=== PATIENT | female | born 1940 | race Caucasian/White ===

== ENCOUNTER 2018-04-15 10:08 | Emergency (ER) | payer MEDICARE ==
[~2018-04-15] VITALS: Ht 162.6 cm; Wt 68.0 kg
[~2018-04-15 10:08] MED LIST: ALBU90OI61; ALPR.5 PO; AMLO5; ASCO1ER; ASCO500 PO; ASPI325EC PO; ASPI81CH PO; AZIT250 PO; Aspirin EC325 MG PO; Ativan0.5 MG; Ativan0.5 MG PO; CALCA500CH PO; CAND16; CARV25 PO; CARV3.125 PO; CARV6.25 PO; CIPR250 PO; CODACE30 PO; ERGO50000 PO; ESTMETHS PO; ESTR.05TPB; ESTR.05TPW; ESTR1; ESTR2 PO; FLAX; FLUT.05NI; FURO20 PO; HCTZ; HYDACE5; HYDCHL12.5; HYDCHLSU; HYDCHLSU PO; HYDGUAL120 PO; IBUP600 PO; Keflex500 MG PO; LANS15EC PO; LANS30EC PO; LEVFLO500 PO; LEVLIO1; LEVLIO2; LEVSOD100; LEVSOD75 PO; LORA.5; LORA.5 PO; LORA10; LORA10ER PO; LORA2 PO; LOSARTAN POTAS100 MG PO; METO25 PO; MULVITMIND; Mucinex600 MG PO; NEBI5 PO; OLME20 PO; OMEP10ER; Omeprazole20 M1 PO; PANT40; PHENA200 PO; POTA8; POTA8 PO; PROP10; RANI150 PO; SUCR1 PO; SULTRIDS PO; TEGA6; THYR60; THYR60 PO; TRIHYD253A; TRIHYD253A PO; TRIHYD253B PO; Ultram50 MG PO; VERA120ER
[2018-04-15 11:03] LABS: BASOPHILS ABSOLUTE AUTO 0.05 K/mm3 (0.00-0.23); BASOPHILS PERCENT AUTO 1 % (0-2); EOSINOPHILS ABSOLUTE AUTO 0.14 K/mm3 (0.00-0.68); EOSINOPHILS PERCENT AUTO 2 % (0-6); Hematocrit 43.7 % (33.0-51.0); Hemoglobin 14.3 g/dL (11.5-16.0); IMMATURE GRAN ABSOLUTE AUTO 0.02 K/mm3 (0.00-0.10); IMMATURE GRAN PERCENT AUTO 0 % (0-1); LYMPHOCYTES ABSOLUTE AUTO 2.97 K/mm3 (0.84-5.20); LYMPHOCYTES PERCENT AUTO 39 % (21-46); MONOCYTES ABSOLUTE AUTO 0.58 K/mm3 (0.16-1.47); MONOCYTES PERCENT AUTO 8 % (4-13); Mean Corpuscular HGB 28.9 pg (26.0-34.0); Mean Corpuscular HGB Conc 32.7 g/dL (31.5-36.5); Mean Corpuscular Volume 89 fL (80-100); Mean Platelet Volume 9.4 fL (9.1-12.4); NEUTROPHILS PERCENT AUTO 51 % (41-73); Platelet Count 342 K/mm3 (150-400); RDW Coefficient Variation 13.2 % (11.7-14.2); RDW Standard Deviation 42.4 fL (35.1-46.3); Red Blood Cell Count 4.94 M/mm3 (3.80-5.20); White Blood Cell Count 7.66 K/mm3 (4.00-11.30)
[2018-04-15 11:23] LABS: Alanine Aminotransfer (ALT/SGP 40 U/L (12-78); Albumin, Blood 4.1 g/dL (3.4-5.0); Albumin/Globulin Ratio 1.1 (0.8-1.8); Alk Phos 86 U/L (50-136); Anion Gap 9 mmol/L (6-16); Aspartate Aminotrans (AST/SGOT 20 U/L (12-37); Bilirubin, Total 0.4 mg/dL (0.1-1.0); Blood Urea Nitrogen 12 mg/dL (8-24); CO2, Blood 25 mmol/L (21-32); Calcium, Blood 9.3 mg/dL (8.5-10.1); Chloride, Blood 100 mmol/L (98-108); Creatinine, Blood 0.63 mg/dL (0.40-1.00); Globulin, Blood 3.8 g/dL (2.2-4.0); Glomerular Filtration Rate >60 (60-); Glucose, Blood 142 mg/dL (70-99); Potassium, Blood 3.6 mmol/L (3.5-5.5); Sodium, Blood 134 mmol/L (136-145); Total Protein, Blood 7.9 g/dL (6.4-8.2)
== END 2018-04-15 13:02 | disposition home or self-care (01) ==
LOC: ER 10:08
PROVIDERS: Emergency Medicine
DX: R10.9 Unspecified abdominal pain (principal); E11.9 Type 2 diabetes mellitus without complications; I10 Essential (primary) hypertension; Z88.1 Allergy status to other antibiotic agents; Z88.0 Allergy status to penicillin; Z88.2 Allergy status to sulfonamides; Z88.8 Allergy status to other drugs, medicaments and biological substances; Z88.5 Allergy status to narcotic agent; Z79.899 Other long term (current) drug therapy; Z79.82 Long term (current) use of aspirin
CPT/HCPCS: 80053; 81000; 83690; 85025; 96360; 96361; 99283; J7030

== ENCOUNTER → 2018-04-21 | Outpatient (CLI) | payer MEDICARE | END | disposition home or self-care (01) | LOC: LAB 16:18 → LAB SHORT 16:18 | DX: N89.8 Other specified noninflammatory disorders of vagina (principal) | CPT/HCPCS: 87070; 87205 ==

== ENCOUNTER → 2018-11-03 | Outpatient (CLI) | payer MEDICARE ==
[~2018-11-03] MED LIST changes: +CLIMARA1 EACH TD; -ESTR.05TPW; +Vibramycin100 MG PO
== END ==
LOC: LAB 16:16 → LAB SHORT 16:16
DX: N89.8 Other specified noninflammatory disorders of vagina (principal)
CPT/HCPCS: 87070; 87106; 87205

== ENCOUNTER → 2019-09-29 | Outpatient (CLI) | payer MEDICARE ==
[~2019-09-29] MED LIST changes: +CEPH500 PO; +Diflucan100 MG PO
[2019-09-30 11:34] LABS: Candida species (DNA Probe) Positive (NEGATIVE); G. vaginalis (DNA Probe) Positive (NEGATIVE); T. vaginalis (DNA Probe) Negative (NEGATIVE)
== END | disposition home or self-care (01) ==
LOC: LAB SHORT 11:15 → LAB 11:15
PROVIDERS: Obstetrics & Gynecology
DX: N89.8 Other specified noninflammatory disorders of vagina (principal); N94.89 Other specified conditions associated with female genital organs and menstrual cycle
CPT/HCPCS: 87480; 87510; 87660

== ENCOUNTER → 2019-10-15 | Outpatient (CLI) | payer MEDICARE ==
[2019-10-16 09:52] LABS: Candida species (DNA Probe) Positive (NEGATIVE); G. vaginalis (DNA Probe) Negative (NEGATIVE); T. vaginalis (DNA Probe) Negative (NEGATIVE)
== END | disposition home or self-care (01) ==
LOC: LAB SHORT 16:44 → LAB 16:44
PROVIDERS: Obstetrics & Gynecology
DX: N89.8 Other specified noninflammatory disorders of vagina (principal); N94.89 Other specified conditions associated with female genital organs and menstrual cycle
CPT/HCPCS: 87070; 87106; 87205; 87480; 87510; 87660

== ENCOUNTER 2019-11-03 15:07 | Emergency (ER) | payer MEDICARE ==
[~2019-11-03] VITALS: Ht 160 cm; Wt 65.8 kg
[~2019-11-03 15:07] MED LIST changes: -CEPH500 PO; -Diflucan100 MG PO
[2019-11-03] MEDS ORDERED: CEPH500 PO ×2 (16:32→16:41)
[2019-11-03] MEDS ORDERED: Diflucan100 MG PO ×2 (16:32→16:41)
[2019-11-03 16:34] LABS: BASOPHILS ABSOLUTE AUTO 0.04 K/mm3 (0.00-0.23); BASOPHILS PERCENT AUTO 0 % (0-2); EOSINOPHILS ABSOLUTE AUTO 0.12 K/mm3 (0.00-0.68); EOSINOPHILS PERCENT AUTO 1 % (0-6); Hematocrit 44.4 % (33.0-51.0); Hemoglobin 14.7 g/dL (11.5-16.0); IMMATURE GRAN ABSOLUTE AUTO 0.04 K/mm3 (0.00-0.10); IMMATURE GRAN PERCENT AUTO 0 % (0-1); LYMPHOCYTES ABSOLUTE AUTO 1.94 K/mm3 (0.84-5.20); LYMPHOCYTES PERCENT AUTO 14 % (21-46); MONOCYTES ABSOLUTE AUTO 0.69 K/mm3 (0.16-1.47); MONOCYTES PERCENT AUTO 5 % (4-13); Mean Corpuscular HGB 29.8 pg (26.0-34.0); Mean Corpuscular HGB Conc 33.1 g/dL (31.5-36.5); Mean Corpuscular Volume 90 fL (80-100); Mean Platelet Volume 10.1 fL (9.1-12.4); NEUTROPHILS ABSOLUTE AUTO 10.98 K/mm3 (1.96-9.15); NEUTROPHILS PERCENT AUTO 80 % (41-73); Platelet Count 307 K/mm3 (150-400); RDW Coefficient Variation 13.4 % (11.7-14.2); RDW Standard Deviation 44.1 fL (35.1-46.3); Red Blood Cell Count 4.94 M/mm3 (3.80-5.20); White Blood Cell Count 13.81 K/mm3 (4.00-11.30)
[2019-11-03 17:17] LABS: Alanine Aminotransfer (ALT/SGP 68 U/L (12-78); Alk Phos 96 U/L (50-136); Anion Gap 9 mmol/L (6-16); Aspartate Aminotrans (AST/SGOT 53 U/L (12-37); Bilirubin, Total 0.4 mg/dL (0.1-1.0); Blood Urea Nitrogen 15 mg/dL (8-24); Bun/Creatinine Ratio 23.9 (12.0-20.0); CO2, Blood 21 mmol/L (21-32); Calcium, Blood 9.5 mg/dL (8.5-10.1); Chloride, Blood 107 mmol/L (98-108); Creatinine, Blood 0.63 mg/dL (0.40-1.00); Globulin, Blood 3.9 g/dL (2.2-4.0); Glomerular Filtration Rate >60 (60-); Glucose, Blood 135 mg/dL (70-99); Potassium, Blood 3.8 mmol/L (3.5-5.5); Sodium, Blood 137 mmol/L (136-145); Total Protein, Blood 7.9 g/dL (6.4-8.2)
== END 2019-11-03 16:45 | disposition home or self-care (01) ==
LOC: ER 15:07
PROVIDERS: Physician Assistant
DX: I88.9 Nonspecific lymphadenitis, unspecified (principal); K12.1 Other forms of stomatitis; I10 Essential (primary) hypertension; F43.9 Reaction to severe stress, unspecified; F41.9 Anxiety disorder, unspecified; K21.9 Gastro-esophageal reflux disease without esophagitis; E11.9 Type 2 diabetes mellitus without complications; E03.9 Hypothyroidism, unspecified; Z79.899 Other long term (current) drug therapy; Z79.82 Long term (current) use of aspirin
CPT/HCPCS: 80053; 85025; 93005; 93010; 99284-25

== ENCOUNTER 2020-02-16 05:02 | Emergency (ER) | payer MEDICARE ==
[~2020-02-16] VITALS: Ht 160 cm; Wt 68.0 kg
[~2020-02-16 05:02] MED LIST changes: +CEPH500 PO; +Diflucan100 MG PO; +EUTHYROX50 MCG PO; -LEVSOD75 PO
[2020-02-16] MEDS ORDERED: CLIMARA ID (05:28)
[2020-02-16] MEDS ORDERED: LISI5 PO (05:34)
[2020-02-16] MEDS ORDERED: POTA10T PO (05:34)
[2020-02-16 05:42] LABS: BASOPHILS ABSOLUTE AUTO 0.05 K/mm3 (0.00-0.23); BASOPHILS PERCENT AUTO 1 % (0-2); EOSINOPHILS ABSOLUTE AUTO 0.13 K/mm3 (0.00-0.68); EOSINOPHILS PERCENT AUTO 2 % (0-6); Hematocrit 44.5 % (33.0-51.0); Hemoglobin 14.7 g/dL (11.5-16.0); IMMATURE GRAN ABSOLUTE AUTO 0.02 K/mm3 (0.00-0.10); IMMATURE GRAN PERCENT AUTO 0 % (0-1); LYMPHOCYTES ABSOLUTE AUTO 2.58 K/mm3 (0.84-5.20); LYMPHOCYTES PERCENT AUTO 30 % (21-46); MONOCYTES ABSOLUTE AUTO 0.65 K/mm3 (0.16-1.47); MONOCYTES PERCENT AUTO 8 % (4-13); Mean Corpuscular HGB 29.9 pg (26.0-34.0); Mean Corpuscular Volume 91 fL (80-100); Mean Platelet Volume 9.5 fL (9.1-12.4); NEUTROPHILS PERCENT AUTO 60 % (41-73); Platelet Count 318 K/mm3 (150-400); RDW Coefficient Variation 13.2 % (11.7-14.2); RDW Standard Deviation 44.2 fL (35.1-46.3); Red Blood Cell Count 4.91 M/mm3 (3.80-5.20); White Blood Cell Count 8.63 K/mm3 (4.00-11.30)
[2020-02-16 06:03] LABS: Alanine Aminotransfer (ALT/SGP 33 U/L (12-78); Albumin, Blood 3.9 g/dL (3.4-5.0); Albumin/Globulin Ratio 1.1 (0.8-1.8); Alk Phos 74 U/L (50-136); Anion Gap 7 mmol/L (6-16); Aspartate Aminotrans (AST/SGOT 20 U/L (12-37); Bilirubin, Total 0.4 mg/dL (0.1-1.0); Blood Urea Nitrogen 13 mg/dL (8-24); Bun/Creatinine Ratio 21.7 (12.0-20.0); CO2, Blood 24 mmol/L (21-32); Calcium, Blood 9.2 mg/dL (8.5-10.1); Chloride, Blood 105 mmol/L (98-108); Globulin, Blood 3.4 g/dL (2.2-4.0); Glomerular Filtration Rate >60 (60-); Glucose, Blood 148 mg/dL (70-99); Potassium, Blood 3.8 mmol/L (3.5-5.5); Sodium, Blood 136 mmol/L (136-145); Total Protein, Blood 7.3 g/dL (6.4-8.2); Troponin I <0.015 ng/mL (0.000-0.040)
== END 2020-02-16 07:12 | disposition home or self-care (01) ==
LOC: ER 05:02
PROVIDERS: Emergency Medicine
DX: R10.84 Generalized abdominal pain (principal); I10 Essential (primary) hypertension; Z88.0 Allergy status to penicillin; Z88.2 Allergy status to sulfonamides; Z88.1 Allergy status to other antibiotic agents; Z88.5 Allergy status to narcotic agent; Z88.8 Allergy status to other drugs, medicaments and biological substances; Z79.82 Long term (current) use of aspirin; Z79.899 Other long term (current) drug therapy
CPT/HCPCS: 74176; 80053; 83690; 84484; 85025; 93005; 93010; 99284-25

== ENCOUNTER 2020-03-16 08:36 | Day surgery (SDC) | payer MEDICARE ==
[~2020-03-16] VITALS: Ht 160 cm; Wt 67.2 kg
[~2020-03-16 08:36] MED LIST changes: +CLIMARA ID; +LISI5 PO; +POTA10T PO
--- NOTE | 2020-03-16 09:01 | NUR ---
03/16/20 0901 Ricco Snyder ONE IV ATTEMPT IN THE HAND HIT VALVE BY GREG, ONE SUCCESSFUL RIGHT WRIST PT TOW
== END 2020-03-16 09:55 | disposition home or self-care (01) ==
LOC: ORSCSDS 08:36
PROVIDERS: Internal Medicine Gastroenterology
PROC: 0DJD8ZZ Inspection of Lower Intestinal Tract, Via Natural or Artificial Opening Endoscopic (ICD-10-PCS; principal; 2020-03-16 09:45)
DX: K62.5 Hemorrhage of anus and rectum (principal); R10.9 Unspecified abdominal pain; K57.30 Diverticulosis of large intestine without perforation or abscess without bleeding; K64.8 Other hemorrhoids; I10 Essential (primary) hypertension; F41.9 Anxiety disorder, unspecified; Z87.891 Personal history of nicotine dependence; E11.9 Type 2 diabetes mellitus without complications; Z79.82 Long term (current) use of aspirin; Z79.899 Other long term (current) drug therapy
CPT/HCPCS: 82947; J2704; J7120

== ENCOUNTER 2020-07-04 22:02 | Emergency (ER) | payer MEDICARE ==
[~2020-07-04] VITALS: Ht 160 cm; Wt 68.0 kg
== END 2020-07-05 01:09 | disposition left against medical advice (07) ==
LOC: ER 22:02
DX: R04.0 Epistaxis (principal); Z53.21 Procedure and treatment not carried out due to patient leaving prior to being seen by health care provider; Z79.82 Long term (current) use of aspirin; Z79.899 Other long term (current) drug therapy
CPT/HCPCS: 99282

== ENCOUNTER → 2021-04-25 | Outpatient (CLI) | payer MEDICARE | END | disposition home or self-care (01) | LOC: LAB SHORT 11:06 | DX: N89.8 Other specified noninflammatory disorders of vagina (principal) | CPT/HCPCS: 87070; 87106; 87205 ==

== ENCOUNTER → 2021-08-29 | Outpatient (CLI) | payer MEDICARE | END | disposition home or self-care (01) | LOC: LAB 17:32 → LAB SHORT 17:32 | DX: N90.89 Other specified noninflammatory disorders of vulva and perineum (principal) | CPT/HCPCS: 87070 ==

== ENCOUNTER 2022-02-14 10:12 | Day surgery (SDC) | payer MEDICARE | END 2022-02-14 23:22 | disposition home or self-care (01) | LOC: MOI MAM 10:12 | DX: D05.11 Intraductal carcinoma in situ of right breast (principal); N60.91 Unspecified benign mammary dysplasia of right breast | CPT/HCPCS: 19081; A4648 ==

== ENCOUNTER 2022-03-30 19:06 | Emergency (ER) | payer MEDICARE ==
[~2022-03-30] VITALS: Ht 160 cm; Wt 67.1 kg
[~2022-03-30 19:06] MED LIST changes: +C COMPLEX1000 M1 PO; +DYAZIDE 37.5-21 EACH PO; +OMEP20ER PO
== END 2022-03-30 20:25 | disposition home or self-care (01) ==
LOC: ER 19:06
DX: N95.1 Menopausal and female climacteric states (principal); R23.2 Flushing; R14.2 Eructation; E11.9 Type 2 diabetes mellitus without complications; I10 Essential (primary) hypertension; Z79.899 Other long term (current) drug therapy; Z79.82 Long term (current) use of aspirin
CPT/HCPCS: 36415

== ENCOUNTER → 2022-04-25 | Outpatient (CLI) | payer MEDICARE | END | disposition home or self-care (01) | LOC: PLD 10:53 → LAB SHORT 10:53 | DX: L30.8 Other specified dermatitis (principal) | CPT/HCPCS: 88305 ==

== ENCOUNTER → 2022-05-10 | Outpatient (CLI) | payer MEDICARE ==
[2022-05-10 14:23] LABS: Albumin, Blood 3.9 g/dL (3.4-5.0); Albumin/Globulin Ratio 1.2 (0.8-1.8); Bilirubin, Total 0.3 mg/dL (0.1-1.0); Bun/Creatinine Ratio 24.4 (12.0-20.0); Calcium, Blood 9.6 mg/dL (8.5-10.1); Creatinine, Blood 0.45 mg/dL (0.40-1.00); Globulin, Blood 3.2 g/dL (2.2-4.0); Potassium, Blood 4.4 mmol/L (3.5-5.5); Thyroid Stimulating Hormone 1.33 uIU/mL (0.360-4.800); Total Protein, Blood 7.1 g/dL (6.4-8.2)
== END | disposition home or self-care (01) ==
LOC: LAB 10:15 → LAB SHORT 10:15
PROVIDERS: Family Medicine
DX: E87.1 Hypo-osmolality and hyponatremia (principal)
CPT/HCPCS: 80053; 84443

== ENCOUNTER 2023-10-01 09:45 | Emergency (ER) | payer MEDICARE ==
[~2023-10-01] VITALS: Ht 160 cm; Wt 62.6 kg
[2023-10-01] MEDS ORDERED: Ventolin/Prove6.7 GM (10:06)
[2023-10-01] MEDS ORDERED: Amaryl1 MG PO (10:07)
[2023-10-01 11:40] VITALS: BP 140/61
== END 2023-10-01 12:20 | disposition home or self-care (01) ==
LOC: ER 09:45
DX: I10 Essential (primary) hypertension (principal); E11.9 Type 2 diabetes mellitus without complications; J34.9 Unspecified disorder of nose and nasal sinuses; J06.9 Acute upper respiratory infection, unspecified; Z88.0 Allergy status to penicillin; Z88.2 Allergy status to sulfonamides; Z88.8 Allergy status to other drugs, medicaments and biological substances; Z88.5 Allergy status to narcotic agent
CPT/HCPCS: 93005; 93010; 99283-25; A9270

== ENCOUNTER → 2023-12-04 | Outpatient (CLI) | payer MEDICARE ==
[~2023-12-04] MED LIST changes: +Amaryl1 MG PO; +Ventolin/Prove6.7 GM
== END | disposition home or self-care (01) ==
LOC: LAB 11:00 → LAB SHORT 11:00
DX: R14.0 Abdominal distension (gaseous) (principal)
CPT/HCPCS: 87338

== ENCOUNTER 2025-02-06 08:28 | Observation (INO) | payer MEDICARE ==
[~2025-02-06] VITALS: Ht 160 cm; Wt 62.5 kg
[2025-02-06 09:18] LABS: BASOPHILS ABSOLUTE AUTO 0.06 K/mm3 (0.00-0.23); BASOPHILS PERCENT AUTO 1 % (0-2); EOSINOPHILS ABSOLUTE AUTO 0.12 K/mm3 (0.00-0.68); EOSINOPHILS PERCENT AUTO 1 % (0-6); Hematocrit 44.5 % (33.0-51.0); Hemoglobin 15.1 g/dL (11.5-16.0); IMMATURE GRAN ABSOLUTE AUTO 0.06 K/mm3 (0.00-0.10); IMMATURE GRAN PERCENT AUTO 1 % (0-1); LYMPHOCYTES ABSOLUTE AUTO 2.03 K/mm3 (0.84-5.20); LYMPHOCYTES PERCENT AUTO 18 % (21-46); MONOCYTES ABSOLUTE AUTO 0.74 K/mm3 (0.16-1.47); MONOCYTES PERCENT AUTO 7 % (4-13); Mean Corpuscular HGB 30.3 pg (26.0-34.0); Mean Corpuscular HGB Conc 33.9 g/dL (31.5-36.5); Mean Corpuscular Volume 89 fL (80-100); Mean Platelet Volume 9.3 fL (9.1-12.4); NEUTROPHILS ABSOLUTE AUTO 8.19 K/mm3 (1.96-9.15); NEUTROPHILS PERCENT AUTO 73 % (41-73); Platelet Count 394 K/mm3 (150-400); RDW Coefficient Variation 13.2 % (11.7-14.2); RDW Standard Deviation 43.5 fL (35.1-46.3); Red Blood Cell Count 4.98 M/mm3 (3.80-5.20)
[2025-02-06 09:33] LABS: Albumin, Blood 4.2 g/dL (3.4-5.0); Bilirubin, Total 0.3 mg/dL (0.1-1.0); Bun/Creatinine Ratio 26.3 (12.0-20.0); Calcium, Blood 9.9 mg/dL (8.5-10.1); Creatinine, Blood 0.46 mg/dL (0.40-1.00); Potassium, Blood 3.8 mmol/L (3.5-5.5); Total Protein, Blood 8.2 g/dL (6.4-8.2)
[2025-02-06 15:56] VITALS: BP 181/79
[2025-02-06] MEDS ORDERED: Insulin Human Lispro 100 Units/ML 3ML Syringe SC SCH (16:30)
[2025-02-06] MEDS ORDERED: Famotidine 20 MG Tab PO ONE (17:05)
[2025-02-06] MEDS ORDERED: ESTRADIOL1 EAC2 TOP (17:11)
[2025-02-06] MEDS ORDERED: Metoprolol Tartrate 1 MG/ML 5 ML VIAL IV PRN (18:00)
[2025-02-06] MEDS ORDERED: Metoprolol Tartrate 25 MG Tab PO SCH (18:00)
[2025-02-06 19:20] VITALS: BP 161/74
--- NOTE | 2025-02-06 19:37 | NUR ---
SHIFT SUMMARY: PT NEW ADMIT THIS SHIFT. TELE ORDER PLACED D/T TRENDING TROPONIN/CHEST TIGHTNESS. NEW IV PLACED IN RFA D/T PREVIOUS SITE BURNING. DR. HALL IN TO SEE PT POST ARRIVAL TO UNIT. NO C/O CHEST PAIN/TIGHTNESS SINCE ARRIVAL TO FLOOR. NOTED ELEVATED BLOOD PRESSURE. DR. HALL AWARE. PT C/O STOMACH UPSET REQUESTING PEPCID. ONE TIME DOSAGE PROVIDED TO PT. SB ASSIST IN ROOM. PLAN FOR NPO AFTER MIDNIGHT FOR 0800 STRESS TEST IN AM. PT AWARE OF PLAN. CALL LIGHT IN REACH. BED IN LOWEST POSITION.
[2025-02-06] MEDS ORDERED: Lisinopril 10 MG Tab PO SCH (21:00)
[2025-02-07 00:21] VITALS: BP 143/63
[2025-02-07 03:56] VITALS: BP 107/58
--- NOTE | 2025-02-07 04:48 | NUR ---
PT A&O X4, VS WITH INCREASED B/P UNTIL THIS AM AND THEN BP WAS LOW, POTENTIAL D/T LOPRESSOR. PT PO INTAKE WNL. UP TO BR INDEPENDENTLY. TELE NSR WITH BBB. DENIED PAIN, NO NAUSEA, NO DIZZINESS AND NO CHEST DISCOMFORT. NPO AFTER MIDNIGHT FOR STRESS TEST. CBG AT HS 198 AND PT WAS CONCERNED, EXPLAINED THE HOSPITAL PROTOCOL FOR SSI AT HS. WILL MONITOR.
[2025-02-07] MEDS ORDERED: Levothyroxine Sodium 0.05 MG Tab PO SCH (06:00)
[2025-02-07] MEDS ORDERED: Omeprazole 20 MG CapCR PO SCH (06:00)
[2025-02-07 06:07] LABS: BASOPHILS ABSOLUTE AUTO 0.08 K/mm3 (0.00-0.23); BASOPHILS PERCENT AUTO 1 % (0-2); EOSINOPHILS ABSOLUTE AUTO 0.22 K/mm3 (0.00-0.68); EOSINOPHILS PERCENT AUTO 2 % (0-6); Hematocrit 37.8 % (33.0-51.0); Hemoglobin 12.5 g/dL (11.5-16.0); IMMATURE GRAN ABSOLUTE AUTO 0.04 K/mm3 (0.00-0.10); IMMATURE GRAN PERCENT AUTO 0 % (0-1); LYMPHOCYTES ABSOLUTE AUTO 3.08 K/mm3 (0.84-5.20); LYMPHOCYTES PERCENT AUTO 26 % (21-46); MONOCYTES ABSOLUTE AUTO 1.01 K/mm3 (0.16-1.47); MONOCYTES PERCENT AUTO 8 % (4-13); Mean Corpuscular HGB 29.4 pg (26.0-34.0); Mean Corpuscular HGB Conc 33.1 g/dL (31.5-36.5); Mean Corpuscular Volume 89 fL (80-100); Mean Platelet Volume 9.5 fL (9.1-12.4); NEUTROPHILS ABSOLUTE AUTO 7.67 K/mm3 (1.96-9.15); NEUTROPHILS PERCENT AUTO 63 % (41-73); Platelet Count 364 K/mm3 (150-400); RDW Coefficient Variation 13.3 % (11.7-14.2); RDW Standard Deviation 43.4 fL (35.1-46.3); Red Blood Cell Count 4.25 M/mm3 (3.80-5.20)
[2025-02-07 06:36] LABS: Anion Gap 10 mmol/L (3-11); Blood Urea Nitrogen 11 mg/dL (8-24); Bun/Creatinine Ratio 22.2 (12.0-20.0); CHOL/HDL RATIO 3.1; CO2, Blood 24 mmol/L (21-32); Calcium, Blood 9.2 mg/dL (8.5-10.1); Chloride, Blood 101 mmol/L (98-108); Cholesterol 184 mg/dL (50-200); Glomerular Filtration Rate 91 (60-); Glucose, Blood 124 mg/dL (70-99); HDL Cholesterol 59 mg/dL (>39); LDL/HDL RATIO 1.9; Low Density Lipoprotein Chol 110 mg/dL (0-110); Potassium, Blood 3.7 mmol/L (3.5-5.5); Sodium, Blood 131 mmol/L (136-145); Triglycerides 74 mg/dL (30-160); Very Low Density Lipoprot Chol 14 mg/dL (6-32)
[2025-02-07 08:00] VITALS: BP 149/67
[2025-02-07] MEDS ORDERED: Enoxaparin 30 MG/0.3 ML SYR SC SCH (09:00)
[2025-02-07] MEDS ORDERED: Ascorbic Acid 500 MG Tab PO SCH (09:00)
[2025-02-07] MEDS ORDERED: Aspirin 81 MG Chew PO SCH (09:00)
[2025-02-07] MEDS ORDERED: Caffeine Citrated 60 MG/3 ML Vial ONE (09:58)
[2025-02-07] MEDS ORDERED: Regadenoson 0.4 MG/5 ML SYRINGE ONE (09:58)
[2025-02-07 10:24] LABS: Free Thyroxine 1.02 ng/dL (0.70-1.60); Thyroid Stimulating Hormone 4.8 uIU/mL (0.360-4.800)
[2025-02-07 14:53] VITALS: BP 151/67
[2025-02-07 14:54] VITALS: BP 155/64
[2025-02-07] MEDS ORDERED: METO25 PO (16:06)
[2025-02-07] MEDS ORDERED: PROTONIX4010 PO (16:07)
--- NOTE | 2025-02-07 16:44 | NUR ---
DISCHARGE: PT D/C @1640 VIA WHEELCHAIR WITH FRIEND. MEDICATIONS FAXED TO [facility] [place]. BOTH IV'S IN RFA REMOVED BY RN STUDENT W/O COMPLICATIONS. TELE SENT BACK. NO QUESTIONS AT TIME OF D/C. DR. HALL IN ROOM TO SEE PT PRIOR TO D/C TO DISCUSS STRESS TEST AND NEW MEDICATIONS.
== END 2025-02-07 16:41 | disposition home or self-care (01) ==
LOC: ER 08:28 → MEDS 08:29
PROVIDERS: Student in an Organized Health Care Education/Training Program; ADMIT Internal Medicine
DX: R55 Syncope and collapse (principal); R61 Generalized hyperhidrosis; R07.89 Other chest pain; R11.0 Nausea; I10 Essential (primary) hypertension; E03.9 Hypothyroidism, unspecified; K21.9 Gastro-esophageal reflux disease without esophagitis; E11.9 Type 2 diabetes mellitus without complications; Z85.3 Personal history of malignant neoplasm of breast; Z87.891 Personal history of nicotine dependence; Z79.82 Long term (current) use of aspirin; Z79.890 Hormone replacement therapy; Z79.899 Other long term (current) drug therapy; Z88.0 Allergy status to penicillin; Z88.1 Allergy status to other antibiotic agents; Z88.2 Allergy status to sulfonamides; Z88.5 Allergy status to narcotic agent; Z88.8 Allergy status to other drugs, medicaments and biological substances
CPT/HCPCS: 36415; 71046; 78452; 80048; 80053; 80061; 82947; 83880; 84439; 84443; 84484; 85025; 85379; 93005; 93010; 93017; 96372; 99285-25; A9270; A9500; G0378; J0706; J1650; J2785

== ENCOUNTER → 2025-02-26 | Outpatient (CLI) | payer MEDICARE ==
[~2025-02-26] MED LIST changes: +ESTRADIOL1 EAC2 TOP; +PROTONIX4010 PO
[2025-02-26 12:25] LABS: BASOPHILS ABSOLUTE AUTO 0.07 K/mm3 (0.00-0.23); BASOPHILS PERCENT AUTO 1 % (0-2); EOSINOPHILS ABSOLUTE AUTO 0.06 K/mm3 (0.00-0.68); EOSINOPHILS PERCENT AUTO 1 % (0-6); Hematocrit 39.2 % (33.0-51.0); Hemoglobin 13.3 g/dL (11.5-16.0); IMMATURE GRAN ABSOLUTE AUTO 0.02 K/mm3 (0.00-0.10); IMMATURE GRAN PERCENT AUTO 0 % (0-1); LYMPHOCYTES ABSOLUTE AUTO 3.04 K/mm3 (0.84-5.20); LYMPHOCYTES PERCENT AUTO 28 % (21-46); MONOCYTES ABSOLUTE AUTO 0.82 K/mm3 (0.16-1.47); MONOCYTES PERCENT AUTO 8 % (4-13); Mean Corpuscular HGB 29.8 pg (26.0-34.0); Mean Corpuscular HGB Conc 33.9 g/dL (31.5-36.5); Mean Corpuscular Volume 88 fL (80-100); Mean Platelet Volume 9.3 fL (9.1-12.4); NEUTROPHILS ABSOLUTE AUTO 6.68 K/mm3 (1.96-9.15); NEUTROPHILS PERCENT AUTO 62 % (41-73); Platelet Count 384 K/mm3 (150-400); RDW Coefficient Variation 13.2 % (11.7-14.2); RDW Standard Deviation 42.6 fL (35.1-46.3); Red Blood Cell Count 4.46 M/mm3 (3.80-5.20); White Blood Cell Count 10.69 K/mm3 (4.00-11.30)
[2025-02-26 12:42] LABS: Albumin, Blood 4.4 g/dL (3.4-5.0); Albumin/Globulin Ratio 1.2 (0.8-1.8); Bilirubin, Total 0.4 mg/dL (0.1-1.0); Calcium, Blood 10.3 mg/dL (8.5-10.1); Creatinine, Blood 0.62 mg/dL (0.40-1.00); Globulin, Blood 3.6 g/dL (2.2-4.0); Potassium, Blood 4.1 mmol/L (3.5-5.5)
== END ==
LOC: LAB SHORT 12:20 → LAB 12:20
PROVIDERS: Physician Assistant
DX: R10.84 Generalized abdominal pain (principal)
CPT/HCPCS: 80053; 83690; 85025

== ENCOUNTER → 2025-06-30 | Outpatient (CLI) | payer MEDICARE ==
[~2025-06-30] MED LIST changes: +CEFP200 PO; +Diflucan150 MG PO
== END ==
LOC: LAB 13:26 → LAB SHORT 13:26
DX: R30.0 Dysuria (principal)
CPT/HCPCS: 87086

== ENCOUNTER → 2025-07-29 | Outpatient (CLI) | payer MEDICARE | END | disposition home or self-care (01) | LOC: LAB SHORT 17:06 → LAB 17:06 | DX: R30.0 Dysuria (principal) | CPT/HCPCS: 87086 ==

== ENCOUNTER → 2025-08-03 | Outpatient (CLI) | payer MEDICARE ==
[2025-08-03 17:16] LABS: Campylobacter Sp Detected (NOT DETECT)
[2025-08-03 17:17] LABS: E. Coli O157 Not Detected (NOT DETECT); Enteroaggregative E. coli-EAEC Not Detected (NOT DETECT); Enteropathogenic E. coli-EPEC Not Detected (NOT DETECT); Enterotoxigenic E. coli-ETEC Not Detected (NOT DETECT); Salmonella Sp Not Detected (NOT DETECT); Shiga Toxin-prod E. coli-STEC Not Detected (NOT DETECT); Shigella/Enteroin E. coli-EIEC Not Detected (NOT DETECT); Vibrio Sp Not Detected (NOT DETECT)
[2025-08-05 11:39] LABS: CALPROTECTIN,FECAL 162 ug/g (<=49)
== END ==
LOC: LAB 06:45 → LAB SHORT 06:45
PROVIDERS: Family Medicine
DX: R10.9 Unspecified abdominal pain (principal)
CPT/HCPCS: 87507